=== PATIENT | female | born 1970 | race Caucasian/White ===

== ENCOUNTER 2018-07-08 09:16 | Day surgery (SDC) | payer OTHER ==
[~2018-07-08] VITALS: Ht 160 cm; Wt 77.1 kg
[2018-07-08] MEDS ORDERED: fentaNYL 0.05 MG/ML VIAL ONE (11:01)
[2018-07-08] MEDS ORDERED: MIDAZOLAM 2 MG/2 ML VIAL ONE (11:01)
== END 2018-07-08 12:20 | disposition home or self-care (01) ==
LOC: MMU 09:16 → MDS 09:16
PROVIDERS: ATTEND Internal Medicine Gastroenterology
DX: K31.89 Other diseases of stomach and duodenum (principal); E66.9 Obesity, unspecified; Z68.30 Body mass index [BMI] 30.0-30.9, adult; Z98.890 Other specified postprocedural states
CPT/HCPCS: 36415; 43239; 86677; J2250; J3010